=== PATIENT | female | born 2000 | race Caucasian/White ===

== ENCOUNTER 2021-02-15 15:25 | Emergency (ER) | payer OTHER ==
[~2021-02-15] VITALS: Ht 162.5 cm; Wt 106.0 kg
[2021-02-15 16:03] LABS: BILIRUBIN,URINE NEGATIVE (NEGATIVE); CLARITY,URINE CLOUDY; COLOR,URINE YELLOW; GLUCOSE, URINE (UA) NEGATIVE (NEGATIVE); KETONES,URINE NEGATIVE (NEGATIVE); LEUKOCYTE ESTERASE ,URINE 1+ (NEGATIVE); NITRITE,URINE NEGATIVE (NEGATIVE); PROTEIN,URINE NEGATIVE (NEGATIVE)
[2021-02-15 16:15] LABS: BACTERIA,URINE FEW /HPF; WBC,URINE 0-2 /HPF
[2021-02-15 16:27] LABS: BASOPHILS % (AUTO) 0 % (0-10); EOSINOPHILS # (AUTO) 0.1 10^3/uL (0.0-0.3); EOSINOPHILS % (AUTO) 1 % (0-10); HEMATOCRIT 43 % (35-52); LYMPHOCYTES # (AUTO) 2.7 10^3/uL (1.0-4.0); LYMPHOCYTES % (AUTO) 24 % (12-44); MEAN CORPUSCULAR HEMOGLOBIN 29 pg (25-34); MEAN CORPUSCULAR HGB CONC 33 g/dL (32-36); MEAN CORPUSCULAR VOLUME 88 fL (80-99); MEAN PLATELET VOLUME 11.3 fL (9.0-12.2); MONOCYTES # (AUTO) 0.9 10^3/uL (0.0-1.0); MONOCYTES % (AUTO) 8 % (0-12); NEUTROPHILS # (AUTO) 7.6 10^3/uL (1.8-7.8); NEUTROPHILS % (AUTO) 67 % (42-75); PLATELET COUNT 256 10^3/uL (130-400); WHITE BLOOD COUNT 11.4 10^3/uL (4.3-11.0)
[2021-02-15 16:30] LABS: ALBUMIN 4.3 GM/DL (3.2-4.5)
[2021-02-15 16:32] LABS: CALCIUM 9.7 MG/DL (8.5-10.1)
[2021-02-15 16:33] LABS: TOTAL PROTEIN 7.3 GM/DL (6.4-8.2)
[2021-02-15 16:35] LABS: BILIRUBIN,TOTAL 0.3 MG/DL (0.1-1.0)
[2021-02-15 16:37] LABS: CREATININE SERUM 0.75 MG/DL (0.60-1.30)
--- NOTE | 2021-02-15 18:06 | Diagnostic Imaging Report ---
EXAMINATION: Abdominal radiographs, single supine view, 2 images. DATE: February 15, 2021. CLINICAL INDICATION: 20-year-old female, abdominal pain. COMPARISON: None. COMMENTS: There are gas-filled segments of large bowel which are not abnormally distended. There is no identified free intraperitoneal air, pneumatosis, or portal venous gas on supine assessment. The upper abdomen is incompletely imaged. There is no identified abnormal radiodensity overlying the kidneys or expected locations of the ureters. There are left-sided pelvic calcifications likely relating to phleboliths. IMPRESSION: No radiographically apparent acute abdominal abnormality. Dictated by: Dictated on workstation # [id number]
[2021-02-15] MEDS ORDERED: KETOROLAC 30 MG/ML VIAL IVP ONE (18:15)
--- NOTE | 2021-02-15 18:34 | ED Abdominal Pain ---
General Chief Complaint: Abdominal/GI Problems Stated Complaint: ABDOMINAL PAIN Nursing Triage Note: ARRIVES TODAY VIA POV WITH COMPLAINT OF ABDOMINAL PAIN SINCE SATURDAY. PATIENT IS AMBULITORY TO ROOM 9. STATES PAIN IN LOCATED ON THE RIGHT LOWER SIDE AND WRAPS AROUND TO THE FLANK AREA. DENIES ANY URINARY ISSUES, FEVER OR INCREASED PAIN WHEN AMBULATING. STATES PAINIS WORSENED BY SITTING. Source of Information: Patient Exam Limitations: No Limitations History of Present Illness Date Seen by Provider: Feb 15, 2021 Time Seen by Provider: 15:51 Initial Comments Tisha is a 20-year-old young lady who presents to the emergency room with complaints of right flank pain for several days that became worse today. She denies any nausea, vomiting, diarrhea, vaginal symptoms, urinary changes, fever, or other acute symptoms. Pain has been intermittent previously but more constant for the last 5 hours. She states it is worse with rising and sitting b ut is not painful with walking. She is not sexually active. Pain is rated as 4 out of 10. Allergies and Home Medications Allergies Coded Allergies: No Known Drug Allergies (Unverified , 02/15/21) Patient Home Medication List Home Medication List Reviewed: Yes Review of Systems Review of Systems Constitutional: no symptoms reported EENTM: No Symptoms Reported Respiratory: No Symptoms Reported Cardiovascular: No Symptoms Reported Gastrointestinal: See HPI Genitourinary: No Symptoms Reported Musculoskeletal: no symptoms reported Skin: no symptoms reported Psychiatric/Neurological: No Symptoms Reported Endocrine: No Symptoms Reported Hematologic/Lymphatic: No Symptoms Reported Past Chmkruj-Cmllol-Jzacdw Hx Patient Social History Tobacco Use?: No Use of E-Cig and/or Vaping dev: No Substance use?: No Alcohol Use?: No Pt feels they are or have been: No Immunizations Up To Date First/Initial COVID19 Vaccinat: JULY 2020 Second COVID19 Vaccination Ramez: AUGUST 2020 Past Medical History Surgeries: Yes ([place] teeth) Respiratory: No Neurological: No : No Physical Exam Vital Signs Vital Signs - First Documented 02/15/21 15:51 Temp 36.4 Pulse 86 Resp 18 B/P (MAP) 144/77 (99) Pulse Ox 99 O2 Delivery Room Air Capillary Refill : Less Than 3 Seconds Height/Weight/BMI Height: '" Weight: lbs. oz. kg; 40.00 BMI Method: Progress/Results/Core Measures Results/Orders Lab Results Laboratory Tests Test 02/15/21 15:56 02/15/21 16:02 Range/Units Urine Color YELLOW Urine Clarity CLOUDY Urine pH 6.0 5-9 Urine Specific [place] 1.025 H 1.016-1.022 Urine Protein NEGATIVE NEGATIVE Urine Glucose (UA) NEGATIVE NEGATIVE Urine Ketones NEGATIVE NEGATIVE Urine Nitrite NEGATIVE NEGATIVE Urine Bilirubin NEGATIVE NEGATIVE Urine Urobilinogen 0.2 < = 1.0 MG/DL Urine Leukocyte Esterase 1+ H NEGATIVE Urine RBC (Auto) NEGATIVE NEGATIVE Urine RBC NONE /HPF Urine WBC 0-2 /HPF Urine Squamous Epithelial Cells 2-5 /HPF Urine Crystals NONE /LPF Urine Bacteria FEW H /HPF Urine Casts NONE /LPF Urine Mucus NEGATIVE /LPF Urine Culture Indicated NO White Blood Count 11.4 H 4.3-11.0 10^3/uL Red Blood Count 4.91 3.80-5.11 10^6/uL Hemoglobin 14.0 11.5-16.0 g/dL Hematocrit 43 35-52 % Mean Corpuscular Volume 88 80-99 fL Mean Corpuscular Hemoglobin 29 25-34 pg Mean Corpuscular Hemoglobin Concent 33 32-36 g/dL Red Cell Distribution Width 13.0 10.0-14.5 % Platelet Count 256 130-400 10^3/uL Mean Platelet Volume 11.3 9.0-12.2 fL Immature Granulocyte % (Auto) 0 % Neutrophils (%) (Auto) 67 42-75 % Lymphocytes (%) (Auto) 24 12-44 % Monocytes (%) (Auto) 8 0-12 % Eosinophils (%) (Auto) 1 0-10 % Basophils (%) (Auto) 0 0-10 % Neutrophils # (Auto) 7.6 1.8-7.8 10^3/uL Lymphocytes # (Auto) 2.7 1.0-4.0 10^3/uL Monocytes # (Auto) 0.9 0.0-1.0 10^3/uL Eosinophils # (Auto) 0.1 0.0-0.3 10^3/uL Basophils # (Auto) 0.0 0.0-0.1 10^3/uL Immature Granulocyte # (Auto) 0.0 0.0-0.1 10^3/uL Sodium Level 138 135-145 MMOL/L Potassium Level 4.0 3.6-5.0 MMOL/L Chloride Level 105 98-107 MMOL/L Carbon Dioxide Level 24 21-32 MMOL/L Anion Gap 9 5-14 MMOL/L Blood Urea Nitrogen 11 7-18 MG/DL Creatinine 0.75 0.60-1.30 MG/DL Estimat Glomerular Filtration Rate 99 BUN/Creatinine Ratio 15 Glucose Level 84 70-105 MG/DL Calcium Level 9.7 8.5-10.1 MG/DL Corrected Calcium 9.5 8.5-10.1 MG/DL Total Bilirubin 0.3 0.1-1.0 MG/DL Aspartate Amino Transf (AST/SGOT) 15 5-34 U/L Alanine Aminotransferase (ALT/SGPT) 9 0-55 U/L Alkaline Phosphatase 68 40-136 U/L C-Reactive Protein High Sensitivity 0.44 0.00-0.50 MG/DL Total Protein 7.3 6.4-8.2 GM/DL Albumin 4.3 3.2-4.5 GM/DL Serum Test, Qualitative NEGATIVE NEGATIVE My Orders Orders - CHAU LISA MD Ua Culture If Indicated (02/15/21 15:51) Ed Iv/Invasive Line Start (02/15/21 16:19) Cbc With Automated Diff (02/15/21 16:19) Comprehensive Metabolic Panel (02/15/21 16:19) Hs C Reactive Protein (02/15/21 16:19) Hcg,Qualitative Serum (02/15/21 16:19) Abdomen/Kub 1[place] (02/15/21 16:56) Ketorolac Injection (Toradol Injection) (02/15/21 18:15) Medications Given in ED Vital Signs/I&O 02/15/21 02/15/21 15:51 18:51 Temp 36.4 Pulse 86 76 Resp 18 18 B/P (MAP) 144/77 (99) 98/66 Pulse Ox 99 100 O2 Delivery Room Air Room Air Blood Pressure Mean: 99 Departure Impression Primary Impression: Right flank pain Disposition: 01 HOME, SELF-CARE Condition: Improved Departure-Patient Inst. Decision time for Depature: 18:15 Referrals: NO,LOCAL PHYSICIAN (PCP/Family) Primary Care Physician Patient Instructions: Abdominal Pain, Adult ED Add. Discharge Instructions: Drink plenty of clear liquids to stay well-hydrated. Adhere to a clear liquid diet tonight and then gradually advance your diet with small quantities of bland food tomorrow. Avoid fatty, greasy, or oily foods including salad dressings. Fats and oils can aggravate the gallbladder. Based on the location of your pain, it is possible that it is related to your gallbladder. If pain persists into next week, consider following up with your primary care provider and discussing use of a gallbladder ultrasound for further evaluation. If symptoms are worsening, please return to the emergency room. You may use Tylenol (acetaminophen) up to 1000 mg every 6 hours and/or ibuprofen up to 600 mg every 6 hours as needed for pain. Call with questions or concerns. The exact cause of your pain is uncertain at this time. Gallbladder problem or viral illness may be possible causes. All discharge instructions reviewed with patient and/or family. Voiced understanding. CHAU LISA MD Feb 15, 2021 18:34
[2021-02-15 18:51] VITALS: BP 98/66
== END 2021-02-15 18:52 | disposition home or self-care (01) ==
LOC: ER 15:28
DX: R10.31 Right lower quadrant pain (principal)
CPT/HCPCS: 36415; 74018; 80053; 81000; 84703; 85025; 86141